=== PATIENT | female | born 1965 | race Caucasian/White ===

== ENCOUNTER → 2016-09-05 | Outpatient (CLI) | payer OTHER, MEDICAID ==
[~2016-09-05] MED LIST: HYDROCODONE BIT1 T11 PO; MOTRIN800 MG PO
[2016-09-05 09:22] LABS: ALBUMIN 3.6 gm/dl (3.1-4.5); ALKALINE PHOSPHATASE 88 U/L (45-117); BILIRUBIN, DIRECT < 0.1 mg/dL (0.0-0.2); BILIRUBIN, TOTAL 0.4 mg/dl (0.2-1.0); SGOT/AST 20 IU/L (3-35); SGPT/ALT 42 U/L (12-78); TOTAL PROTEIN 7.3 gm/dL (6.4-8.2)
[2016-09-06 05:11] LABS: HEPATITIS B SURFACE AB 006395 Non Reactive (.)
== END | disposition home or self-care (01) ==
LOC: LAB 07:19 → US 07:30
PROVIDERS: Internal Medicine Gastroenterology
DX: K76.0 Fatty (change of) liver, not elsewhere classified (principal); K80.20 Calculus of gallbladder without cholecystitis without obstruction

== ENCOUNTER 2016-09-12 15:38 | Emergency (ER) | payer OTHER, MEDICAID ==
[~2016-09-12] VITALS: Ht 154.9 cm; Wt 68.0 kg
[2016-09-12 15:54] VITALS: BP 148/80
[2016-09-12] MEDS ORDERED: HYDR12.5C PO (16:54)
== END 2016-09-12 17:02 | disposition home or self-care (01) ==
LOC: ED 15:38
DX: R60.0 Localized edema (principal); I10 Essential (primary) hypertension; Z88.6 Allergy status to analgesic agent

== ENCOUNTER → 2016-12-21 | Outpatient (CLI) | payer OTHER, MEDICAID ==
[~2016-12-21] MED LIST changes: +HYDR12.5C PO
[2016-12-21 17:55] LABS: HEMATOCRIT 36.2 % (37.0-47.0); HEMOGLOBIN 11.9 g/dl (12.0-16.0); MEAN CELL VOLUME 87.9 fl (81.0-99.0); MEAN CORPUSCULAR HGB 28.9 pg (27.0-31.0); MEAN CORPUSCULAR HGB CONC 32.9 g/dl (33.0-37.0); MEAN PLATELET VOLUME 8.9 fl (9.6-12.3); RED BLOOD COUNT 4.12 10*6/uL (4.10-5.10); RED CELL DISTRI WIDTH 14.2 % (0-14.5); WHITE BLOOD COUNT 9.1 10*3/uL (4.8-10.8)
[2016-12-21 18:10] LABS: ALBUMIN 3.8 gm/dl (3.1-4.5); ALKALINE PHOSPHATASE 104 U/L (45-117); BILIRUBIN, TOTAL 0.4 mg/dl (0.2-1.0); BUN 16 mg/dl (7-24); CARBON DIOXIDE 26 mmol/L (21-32); CHLORIDE 106 mmol/L (98-107); EST GLOM FILT AFRICAN AMERICAN > 60 ml/min; GLUCOSE 103 mg/dL (65-99); SGOT/AST 16 IU/L (3-35); SGPT/ALT 27 U/L (12-78); SODIUM 141 mmol/L (136-145); TOTAL PROTEIN 7.7 gm/dL (6.4-8.2)
== END ==
LOC: US 17:34 → LAB 17:34 → US 18:00
PROVIDERS: Internal Medicine
DX: M16.31 Unilateral osteoarthritis resulting from hip dysplasia, right hip (principal); L03.116 Cellulitis of left lower limb

== ENCOUNTER → 2017-01-05 | Outpatient (CLI) | payer OTHER, MEDICAID | END | disposition home or self-care (01) | LOC: CARD 09:30 | DX: R00.2 Palpitations (principal) ==

== ENCOUNTER → 2017-03-21 | Outpatient (CLI) | payer OTHER, MEDICAID | END | disposition home or self-care (01) | LOC: US 15:56 | DX: I82.4Z2 Acute embolism and thrombosis of unspecified deep veins of left distal lower extremity (principal); I73.9 Peripheral vascular disease, unspecified ==

== ENCOUNTER 2017-05-05 17:43 | Emergency (ER) | payer OTHER, MEDICAID ==
[~2017-05-05] VITALS: Ht 152.4 cm; Wt 68.0 kg
[2017-05-05 17:52] VITALS: BP 146/72
[2017-05-05 18:34] LABS: BASO % 0.4 % (0.0-1.0); EOS # 0.4 10*3/uL (0.0-0.4); EOS % 3.7 % (1.0-4.0); HEMATOCRIT 36.6 % (37.0-47.0); HEMOGLOBIN 11.6 g/dl (12.0-16.0); LYMPH # 1.5 10*3/uL (1.3-4.4); MEAN CELL VOLUME 90.4 fl (81.0-99.0); MEAN CORPUSCULAR HGB 28.6 pg (27.0-31.0); MEAN CORPUSCULAR HGB CONC 31.7 g/dl (33.0-37.0); MEAN PLATELET VOLUME 8.7 fl (9.6-12.3); MONO # 0.6 10*3/uL (0.1-1.0); MONO % 5.9 % (3.0-9.0); NEUT # 7.8 10*3/uL (2.3-7.9); NEUT % 75.5 % (47.0-73.0); PLATELET COUNT AUTOMATED 399 10*3/uL (130-400); RED BLOOD COUNT 4.05 10*6/uL (4.10-5.10); RED CELL DISTRI WIDTH 13.9 % (0-14.5); WHITE BLOOD COUNT 10.4 10*3/uL (4.8-10.8)
[2017-05-05 18:56] LABS: ALBUMIN 3.8 gm/dl (3.1-4.5); ALKALINE PHOSPHATASE 118 U/L (45-117); BUN 15 mg/dl (7-24); CHLORIDE 108 mmol/L (98-107); CREATININE 0.71 mg/dL (0.55-1.02); LIPASE 209 U/L (73-393); POTASSIUM 4.4 mmol/L (3.5-5.1); SGOT/AST 15 IU/L (3-35); SGPT/ALT 19 U/L (12-78); SODIUM 141 mmol/L (136-145); TOTAL PROTEIN 7.7 gm/dL (6.4-8.2)
[2017-05-05 19:20] LABS: BILIRUBIN NEGATIVE (NEGATIVE); BLOOD NEGATIVE (NEGATIVE); CLARITY SL CLOUDY (CLEAR); COLOR YELLOW (YELLOW); GLUCOSE NEGATIVE (NEGATIVE); KETONE NEGATIVE (NEGATIVE); LEUKO ESTERASE NEGATIVE (NEGATIVE); NITRITE NEGATIVE (NEGATIVE); SPECIFIC GRAVITY 1.025 (1.005-1.030); UROBILINOGEN 0.2 E.U./dl (0.2-1.0)
[2017-05-05 19:27] LABS: BACTERIA 2+; RBC 0-2 rbc/hpf (0-2)
[2017-05-05] MEDS ORDERED: BENTYL10 MG PO (19:42)
== END 2017-05-05 19:50 | disposition home or self-care (01) ==
LOC: ED 17:43
PROVIDERS: Physician Assistant
DX: R10.12 Left upper quadrant pain (principal); Z79.899 Other long term (current) drug therapy; Z88.6 Allergy status to analgesic agent

== ENCOUNTER → 2017-06-16 | Outpatient (CLI) | payer OTHER, MEDICAID ==
[~2017-06-16] MED LIST changes: +BENTYL10 MG PO
== END | disposition home or self-care (01) ==
LOC: RAD 10:53
DX: R10.12 Left upper quadrant pain (principal)

== ENCOUNTER 2017-07-28 22:11 | Emergency (ER) | payer OTHER, MEDICAID ==
[~2017-07-28] VITALS: Ht 154.9 cm; Wt 68.0 kg
[2017-07-28 22:18] VITALS: BP 139/92
[2017-07-28 22:40] LABS: BILIRUBIN NEGATIVE (NEGATIVE); BLOOD NEGATIVE (NEGATIVE); CLARITY CLEAR (CLEAR); COLOR YELLOW (YELLOW); GLUCOSE NEGATIVE (NEGATIVE); KETONE 1+ (NEGATIVE); LEUKO ESTERASE NEGATIVE (NEGATIVE); NITRITE NEGATIVE (NEGATIVE); SPECIFIC GRAVITY 1.025 (1.005-1.030); UROBILINOGEN 0.2 E.U./dl (0.2-1.0)
[2017-07-28 22:48] LABS: BACTERIA TRACE; HYALINE CAST 0-2; WBC 0-2 wbc/hpf (0-5)
[2017-07-28 23:18] LABS: BASO # 0.1 10*3/uL (0.0-0.1); BASO % 0.4 % (0.0-1.0); EOS # 0.4 10*3/uL (0.0-0.4); EOS % 2.4 % (1.0-4.0); HEMATOCRIT 37.8 % (37.0-47.0); HEMOGLOBIN 12.2 g/dl (12.0-16.0); LYMPH # 1.8 10*3/uL (1.3-4.4); LYMPH % 12.2 % (27.0-41.0); MEAN CELL VOLUME 90.4 fl (81.0-99.0); MEAN CORPUSCULAR HGB 29.2 pg (27.0-31.0); MEAN CORPUSCULAR HGB CONC 32.3 g/dl (33.0-37.0); MEAN PLATELET VOLUME 8.6 fl (9.6-12.3); MONO # 0.8 10*3/uL (0.1-1.0); MONO % 5.7 % (3.0-9.0); NEUT # 11.5 10*3/uL (2.3-7.9); NEUT % 78.7 % (47.0-73.0); PLATELET COUNT AUTOMATED 444 10*3/uL (130-400); RED BLOOD COUNT 4.18 10*6/uL (4.10-5.10); RED CELL DISTRI WIDTH 14.3 % (0-14.5); WHITE BLOOD COUNT 14.6 10*3/uL (4.8-10.8)
[2017-07-28 23:28] LABS: ALBUMIN 4.3 gm/dl (3.1-4.5); ALKALINE PHOSPHATASE 121 U/L (45-117); BUN 18 mg/dl (7-24); CHLORIDE 101 mmol/L (98-107); LIPASE 193 U/L (73-393); POTASSIUM 3.9 mmol/L (3.5-5.1); SGOT/AST 13 IU/L (3-35); SGPT/ALT 23 U/L (12-78); SODIUM 137 mmol/L (136-145); TOTAL PROTEIN 8.4 gm/dL (6.4-8.2)
[2017-07-29] MEDS ORDERED: ZOFRAN ODT4 MG SL (00:25)
[2017-07-29] MEDS ORDERED: PROTONIX40 MG PO (00:25)
[2017-07-29] MEDS ORDERED: MIRALAX POWDER17 G1 PO (00:33)
== END 2017-07-29 00:31 | disposition home or self-care (01) ==
LOC: ED 22:11
PROVIDERS: Emergency Medicine Emergency Medical Services; Nurse Practitioner Family
DX: K57.30 Diverticulosis of large intestine without perforation or abscess without bleeding (principal); K29.80 Duodenitis without bleeding; Z79.899 Other long term (current) drug therapy; Z88.6 Allergy status to analgesic agent

== ENCOUNTER → 2017-10-06 | Day surgery (SDC) | payer OTHER, MEDICAID ==
[~2017-10-06] VITALS: Ht 154.9 cm; Wt 68.0 kg
[~2017-10-06] MED LIST changes: +CYCLOBENZAPRINE10 MG PO; +KLOR-CON M1010 ME1 PO; +LASIX20 MG PO; +MIRALAX POWDER17 G1 PO; +PROTONIX40 MG PO; +TYLENOL325 M1 PO; +ZOFRAN ODT4 MG SL
--- NOTE | ~2017-10-06 | O ---
[place], [place] OPERATIVE NOTE NAME: HENNA DUARTE UNIT #: [id number] ROOM: DOCTOR: KATHRIN CHRISTIANSON MD BIRTHDATE: [birth year] DOS: 10/06/2017 The patient is a 51-year-old presented with left lower quadrant pain. SOCIAL HISTORY: Nonsmoker, nonalcohol consumer. PAST SURGICAL HISTORY: Right hip degenerative joint disease. PAST MEDICAL HISTORY: Otherwise, unremarkable, not taking any medication. ALLERGIES: No known medication. FAMILY HISTORY: Noncontributory. PROCEDURE: Today's procedure part of investigation of ambiguous left lower quadrant pain is colonoscopy plus snare polypectomy. PREMEDICATION: Versed and propofol. SCOPE: Olympus forwarding colonoscope, 10L video. REPORT: After putting the patient in left lateral position and application of lubricant to rectal pouch and digital examination, scope was introduced. Thereafter, under direct visualization, advanced through the length of colon without difficulty. Diverticulosis of sigmoid colon was appreciated. Sessile polyp with liver lesion in sigmoid colon with a snare polypectomy removed. Base of cecum explored, appendiceal was identified. Ileocecal valve was defined. Scope was gradually withdrawn. Air was suctioned out. The patient was extubated, tolerated procedure well. IMPRESSION: Sigmoid colon polyp, status post snare polypectomy, diverticulosis. PLAN AND DISCUSSION: I believe this left lower abdominal distress that she is experiencing is secondary to her diverticular pathology and otherwise CT scan has been in office reported as detailed. [place], [place] OPERATIVE NOTE NAME: HENNA DUARTE UNIT #: [id number] ROOM: DOCTOR: KATHRIN CHRISTIANSON MD BIRTHDATE: [birth year] KATHRIN CHRISTIANSON MD CM:OPRECORD:OPERATIVE NOTE [id number] KATHRIN CHRISTIANSON MD 10/06/17 1531 interface
[2017-10-06 14:11] VITALS: BP 139/98
[2017-10-06 14:53] VITALS: BP 127/86
[2017-10-06 15:05] VITALS: BP 120/72
[2017-10-06 15:22] VITALS: BP 124/66
== END | disposition home or self-care (01) ==
LOC: SDC 10-02 12:30
DX: D12.5 Benign neoplasm of sigmoid colon (principal); K57.30 Diverticulosis of large intestine without perforation or abscess without bleeding; I10 Essential (primary) hypertension; Z79.899 Other long term (current) drug therapy; Z88.8 Allergy status to other drugs, medicaments and biological substances

== ENCOUNTER 2018-02-10 09:49 | Emergency (ER) | payer OTHER, MEDICAID ==
[~2018-02-10] VITALS: Ht 154.9 cm; Wt 68.0 kg
[2018-02-10 09:53] VITALS: BP 128/80
== END 2018-02-10 11:14 | disposition home or self-care (01) ==
LOC: ED 09:49
DX: M25.551 Pain in right hip (principal); R03.0 Elevated blood-pressure reading, without diagnosis of hypertension; Z79.899 Other long term (current) drug therapy

== ENCOUNTER → 2018-10-16 | Outpatient (CLI) | payer OTHER, MEDICAID | END | disposition home or self-care (01) | LOC: MAMMO 14:29 | DX: Z12.31 Encounter for screening mammogram for malignant neoplasm of breast (principal) ==